=== PATIENT | male | born 1990 | race Caucasian/White ===

== ENCOUNTER 2022-12-02 01:07 | Inpatient (IN) | payer MEDICAID ==
[~2022-12-02] VITALS: Ht 177.8 cm; Wt 89.0 kg
[2022-12-02] VITALS (7 sets, daily range): BP systolic 126–151; BP diastolic 76–92; PULSE 72–95; RESP 18–20; TEMP 97.3–98.2; O2SAT 97
[2022-12-02] MEDS ORDERED: HALOPERIDOL 5 MG TABLET PO PRN (01:30)
[2022-12-02] MEDS ORDERED: ZOLPIDEM TARTRATE 10 MG TABLET PO PRN (01:30)
[2022-12-02 01:51] LABS: GLUCOMETER DEV NAME(LOC) POC.BV; POC SARS-COV2 AG, FIA NEGATIVE (NEGATIVE)
[2022-12-02] MEDS ORDERED: PETROLATUM,WHITE 28 GM JELLY TP PRN (07:00)
[2022-12-02] MEDS ORDERED: BACITRACIN 28 GM OINTMENT TP PRN (07:00)
[2022-12-02] MEDS ORDERED: MAGNESIUM HYDROXIDE SUSPENSION 30 ML UDCUP PO PRN (07:00)
[2022-12-02] MEDS ORDERED: MAG HYDROX/ALUMINUM HYD/SIMETH ES 30 ML SUSPENSION UDCUP PO PRN (07:00)
[2022-12-02] MEDS ORDERED: ACETAMINOPHEN 325 MG TABLET PO PRN (07:00)
[2022-12-02] MEDS ORDERED: CloNIDine HCL 0.1 MG TABLET PO PRN (07:00)
[2022-12-02] MEDS ORDERED: BENZOCAINE/MENTHOL LOZENGE PO PRN (07:00)
[2022-12-02] MEDS ORDERED: DOCUSATE SODIUM 100 MG CAPSULE PO PRN (07:00)
[2022-12-02] MEDS ORDERED: ONDANSETRON HCL 4 MG TABLET PO PRN (07:00)
[2022-12-02] MEDS ORDERED: LOPERAMIDE HCL 2 MG CAPSULE PO PRN (07:00)
[2022-12-02] MEDS ORDERED: OMEPRAZOLE 20 MG CAPSULE PO PRN (07:00)
[2022-12-02] MEDS ORDERED: IBUPROFEN 600 MG TABLET PO PRN (07:00)
[2022-12-02] MEDS ORDERED: ALBUTEROL SULFATE HFA 90 MCG/PUFF 8 GM INHALER IH PRN (07:00)
[2022-12-02 07:53] LABS: BASOPHILS % (AUTO) 0.7 % (0.0-2.0); EOSINOPHILS % (AUTO) 3.6 % (1.0-6.0); HEMATOCRIT 42.5 % (41-53); HEMOGLOBIN 14.1 g/dL (13.5-17.5); LYMPHOCYTES # (AUTO) 2.5 K/uL (1.0-4.8); LYMPHOCYTES % (AUTO) 29.7 % (22.0-44.0); MEAN CORPUSCULAR HEMOGLOBIN 29.9 pg (26.0-34.0); MEAN CORPUSCULAR HGB CONC 33.3 G/dL (31.0-37.0); MEAN CORPUSCULAR VOLUME 90 fL (80-100); MONOCYTES # (AUTO) 1.1 K/uL (0.1-1.0); MONOCYTES % (AUTO) 12.8 % (2.0-9.0); NEUTROPHILS # (AUTO) 4.4 K/uL (1.8-7.7); NEUTROPHILS % (AUTO) 53.2 % (40.0-70.0); PLATELET COUNT (AUTO) 327 K/uL (150-450); RED BLOOD CELL COUNT(AUTO) 4.74 MIL/uL (4.50-5.90); RED CELL DISTRIBUTION WIDTH 15.1 % (11.5-14.5); WHITE BLOOD COUNT (AUTO) 8.2 K/uL (4.5-11.0)
[2022-12-02 08:07] LABS: HEMOGLOBIN A1C 5.3 % (3.8-5.6)
[2022-12-02] MEDS: AmLODIPine BESYLATE 5 MG TABLET PO SCH (08:19)
[2022-12-02 08:21] LABS: ALANINE AMINOTRANSFERASE 55 U/L (12-78); ALBUMIN 3.2 g/dL (3.4-5.0); ALKALINE PHOSPHATASE 85 U/L (46-116); ANION GAP 7 mmol/L (8-16); ASPARTATE AMINOTRANSFERASE 44 U/L (15-37); BILIRUBIN,TOTAL 0.3 mg/dL (0.1-1.0); CARBON DIOXIDE 29 mmol/L (22-29); CHLORIDE 102 mmol/L (98-107); CHOL/HDL RATIO 2.8 (4.2-7.3); CHOLESTEROL 132 mg/dL (131-200); FREE T4 (FREE THYROXINE) 1.04 ng/dL (0.76-1.46); GLOMERULAR FILTR. RATE CALC > 60 mL/min (>60); GLUCOSE,RANDOM 91 mg/dL (70-110); HDL CHOLESTEROL 47 mg/dL (40-60); LDL CHOL (CALC.) 69 mg/dL (0-130); POTASSIUM 3.4 mmol/L (3.5-5.1); SODIUM SERUM 138 mmol/L (136-145); T4 (THYROXINE) 5.7 mcg/dL (4.7-13.3); THYROID STIMULATING HORMONE 2.42 uIU/mL (0.36-3.74); TOTAL PROTEIN, SERUM 6.5 g/dL (6.4-8.2); TRIGLYCERIDES 81 mg/dL (15-150); UREA NITROGEN, BLOOD 16 mg/dL (7-18)
[2022-12-02] MEDS: LORazepam 2 MG TABLET PO PRN (17:33)
[2022-12-03 08:04] LABS: APPEARANCE,URINE TURBID (CLEAR); BILIRUBIN,URINE NEGATIVE (NEGATIVE); COLOR,URINE YELLOW (YELLOW); GLUCOSE, URINE (UA) NEGATIVE (NEGATIVE); KETONES,URINE NEGATIVE (NEGATIVE); LEUKOCYTE ESTERASE ,URINE NEGATIVE (NEGATIVE); NITRATE,URINE NEGATIVE (NEGATIVE); OCCULT BLOOD,URINE NEGATIVE (NEGATIVE); PH,URINE 7.5 (5.0-8.0); PH,URINE DRUG SCREEN 7.5 (5.0-8.0); PROTEIN,URINE NEGATIVE (NEGATIVE); SPECIFIC GRAVITIY, URINE 1.018 (1.003-1.030); UROBILINOGEN,URINE <=1.0 mg/dL (<=1.0)
[2022-12-03 08:22] LABS: ALCOHOL, URINE DRUG SCREEN NEGATIVE (NEGATIVE); AMPHET/METH SCREEN,URINE NEGATIVE (NEGATIVE); BARBITURATE SCREEN, URINE NEGATIVE (NEGATIVE); BENZODIAZEPINES SCREEN,URINE NEGATIVE (NEGATIVE); CANNABINOID SCREEN,URINE POSITIVE (NEGATIVE); COCAINE SCREEN,URINE NEGATIVE (NEGATIVE); METHADONE SCREEN, URINE NEGATIVE (NEGATIVE); OPIATE SCREEN,URINE NEGATIVE (NEGATIVE); PHENCYCLIDINE SCREEN,URINE NEGATIVE (NEGATIVE)
[2022-12-03] MEDS: LORazepam 2 MG TABLET PO PRN ×2 (08:37→19:02)
[2022-12-03] MEDS: AmLODIPine BESYLATE 5 MG TABLET PO SCH (08:37)
[2022-12-03 09:28] VITALS: BP 138/84; PULSE 84; RESP 17; TEMP 97.7; O2SAT 100
[2022-12-03 21:36] VITALS: BP 151/81; PULSE 94; RESP 17; TEMP 97.8; O2SAT 98
[2022-12-04 08:30] VITALS: BP 131/74; PULSE 74; RESP 17; TEMP 97; O2SAT 95
[2022-12-04] MEDS: AmLODIPine BESYLATE 5 MG TABLET PO SCH (08:56)
[2022-12-04] MEDS ORDERED: BuPROPion HCL 75 MG TABLET PO SCH (09:00)
[2022-12-04] MEDS: LORazepam 2 MG TABLET PO PRN (18:21)
[2022-12-04 20:15] VITALS: BP 138/82; PULSE 79; RESP 18; TEMP 98; O2SAT 98
== END 2022-12-05 07:15 | disposition home or self-care (01) | DRG 754 ==
LOC: B3A 01:25
PROVIDERS: ADMIT Psychiatry & Neurology Psychiatry; ATTEND Psychiatry & Neurology Psychiatry
DX: F32.9 Major depressive disorder, single episode, unspecified (principal); R45.851 Suicidal ideations; F41.9 Anxiety disorder, unspecified; G47.00 Insomnia, unspecified; F19.10 Other psychoactive substance abuse, uncomplicated; K59.00 Constipation, unspecified; F10.90 Alcohol use, unspecified, uncomplicated; Z20.822 Contact with and (suspected) exposure to COVID-19
CPT/HCPCS: 80053; 80061; 80307; 81003; 83036; 84436; 84439; 84443; 85025; 86592

== ENCOUNTER 2023-08-14 01:31 | Inpatient (IN) | payer MEDICAID ==
[2023-08-14] VITALS (10 sets, daily range): BP systolic 101–151; BP diastolic 54–93; PULSE 76–121; RESP 17–19; TEMP 97–98; O2SAT 95–98
[~2023-08-14] VITALS: Ht 177.8 cm; Wt 88.7 kg
[2023-08-14] MEDS ORDERED: ZOLPIDEM TARTRATE 10 MG TABLET PO PRN (02:00)
[2023-08-14] MEDS ORDERED: HALOPERIDOL 5 MG TABLET PO PRN (02:00)
[2023-08-14] MEDS ORDERED: LORazepam 2 MG TABLET PO PRN (02:00)
[2023-08-14] MEDS ORDERED: OLANZapine 5 MG RAPDIS TABLET PO PRN (02:15)
[2023-08-14] MEDS: ONDANSETRON HCL 4 MG TABLET PO ONE (02:43)
[2023-08-14 03:26] LABS: GLUCOMETER DEV NAME(LOC) POC.BV; POC SARS-COV2 AG, FIA NEGATIVE (NEGATIVE)
[2023-08-14] MEDS ORDERED: MAGNESIUM HYDROXIDE SUSPENSION 30 ML UDCUP PO PRN (10:00)
[2023-08-14] MEDS ORDERED: MAG HYDROX/ALUMINUM HYD/SIMETH ES 30 ML SUSPENSION UDCUP PO PRN (10:00)
[2023-08-14] MEDS ORDERED: HydrOXYzine PAMOATE 50 MG CAPSULE PO PRN (10:00)
[2023-08-14] MEDS ORDERED: GuaiFENesin/D-METHORPHAN [SUGAR-FREE] 200-20MG/10 ML SYRUP UDCUP PO PRN (10:00)
[2023-08-14] MEDS ORDERED: LOPERAMIDE HCL 2 MG CAPSULE PO PRN ×2 (10:00)
[2023-08-14] MEDS ORDERED: PROMETHAZINE HCL 25 MG TABLET PO PRN (10:00)
[2023-08-14] MEDS ORDERED: TUBERCULIN, PURIFIED PROTEIN DERIVATIVE 5 TU/0.1 ML SYRINGE ID ONE (10:00)
[2023-08-14] MEDS: CYANOCOBALAMIN 1,000 MCG/ML VIAL IM ONE (10:39)
[2023-08-14] MEDS: LORazepam 2 MG TABLET PO PRN (10:41)
[2023-08-14] MEDS: GABAPENTIN 100 MG CAPSULE PO SCH (14:11)
[2023-08-14] MEDS: DIVALPROEX SODIUM 500 MG ER TABLET PO SCH (21:23)
[2023-08-14] MEDS: HydrOXYzine PAMOATE 50 MG CAPSULE PO SCH (21:23)
[2023-08-14] MEDS: THIAMINE 100 MG TABLET PO SCH (21:23)
[2023-08-14] MEDS: TraZODone HCL 150 MG TABLET PO SCH (21:24)
[2023-08-14] MEDS: MELATONIN 5 MG TABLET PO SCH (21:24)
[2023-08-14] MEDS: OLANZapine 5 MG RAPDIS TABLET PO SCH (21:25)
[2023-08-15 08:19] LABS: HEMOGLOBIN A1C 5.2 % (3.8-5.6)
[2023-08-15 08:29] LABS: BASOPHILS % (AUTO) 0.6 % (0.0-2.0); EOSINOPHILS % (AUTO) 3.7 % (1.0-6.0); HEMATOCRIT 46.1 % (41-53); HEMOGLOBIN 15.4 g/dL (13.5-17.5); LYMPHOCYTES # (AUTO) 2.6 K/uL (1.0-4.8); LYMPHOCYTES % (AUTO) 38.1 % (22.0-44.0); MEAN CORPUSCULAR HEMOGLOBIN 29.5 pg (26.0-34.0); MEAN CORPUSCULAR HGB CONC 33.5 G/dL (31.0-37.0); MEAN CORPUSCULAR VOLUME 88 fL (80-100); MONOCYTES # (AUTO) 0.6 K/uL (0.1-1.0); MONOCYTES % (AUTO) 8.7 % (2.0-9.0); NEUTROPHILS # (AUTO) 3.4 K/uL (1.8-7.7); NEUTROPHILS % (AUTO) 48.9 % (40.0-70.0); PLATELET COUNT (AUTO) 310 K/uL (150-450); RED BLOOD CELL COUNT(AUTO) 5.24 MIL/uL (4.50-5.90); RED CELL DISTRIBUTION WIDTH 13.6 % (11.5-14.5); WHITE BLOOD COUNT (AUTO) 6.9 K/uL (4.5-11.0)
[2023-08-15 08:32] LABS: APPEARANCE,URINE TURBID (CLEAR); BILIRUBIN,URINE NEGATIVE (NEGATIVE); COLOR,URINE YELLOW (YELLOW); GLUCOSE, URINE (UA) NEGATIVE (NEGATIVE); KETONES,URINE TRACE mg/dL (NEGATIVE); LEUKOCYTE ESTERASE ,URINE NEGATIVE (NEGATIVE); NITRATE,URINE NEGATIVE (NEGATIVE); OCCULT BLOOD,URINE NEGATIVE (NEGATIVE); PROTEIN,URINE 30-70 mg/dL (NEGATIVE); SPECIFIC GRAVITIY, URINE 1.027 (1.003-1.030)
[2023-08-15 08:39] LABS: ALCOHOL, URINE DRUG SCREEN POSITIVE (NEGATIVE); AMPHET/METH SCREEN,URINE NEGATIVE (NEGATIVE); BARBITURATE SCREEN, URINE NEGATIVE (NEGATIVE); BENZODIAZEPINES SCREEN,URINE POSITIVE (NEGATIVE); CANNABINOID SCREEN,URINE POSITIVE (NEGATIVE); COCAINE SCREEN,URINE NEGATIVE (NEGATIVE); METHADONE SCREEN, URINE NEGATIVE (NEGATIVE); OPIATE SCREEN,URINE NEGATIVE (NEGATIVE); PHENCYCLIDINE SCREEN,URINE NEGATIVE (NEGATIVE)
[2023-08-15 08:43] VITALS: BP 121/75; PULSE 63; RESP 18; TEMP 98.2; O2SAT 100
[2023-08-15 08:45] LABS: ALANINE AMINOTRANSFERASE 55 U/L (12-78); ALKALINE PHOSPHATASE 113 U/L (46-116); ANION GAP 5 mmol/L (8-16); ASPARTATE AMINOTRANSFERASE 37 U/L (15-37); BILIRUBIN,TOTAL 0.9 mg/dL (0.1-1.0); CALCIUM, TOTAL 8.6 mg/dL (8.8-10.5); CARBON DIOXIDE 31 mmol/L (22-29); CHLORIDE 103 mmol/L (98-107); CHOL/HDL RATIO 3.1 (4.2-7.3); CHOLESTEROL 150 mg/dL (131-200); CREATININE 0.98 mg/dL (0.60-1.30); FREE T4 (FREE THYROXINE) 0.96 ng/dL (0.76-1.46); GLOMERULAR FILTR. RATE CALC > 60 mL/min (>60); GLUCOSE,RANDOM 84 mg/dL (70-110); HDL CHOLESTEROL 48 mg/dL (40-60); LDL CHOL (CALC.) 64 mg/dL (0-130); POTASSIUM 3.2 mmol/L (3.5-5.1); SODIUM SERUM 139 mmol/L (136-145); T4 (THYROXINE) 5.7 mcg/dL (4.7-13.3); THYROID STIMULATING HORMONE 3.48 uIU/mL (0.36-3.74); TOTAL PROTEIN, SERUM 6.4 g/dL (6.4-8.2); TRIGLYCERIDES 191 mg/dL (15-150); UREA NITROGEN, BLOOD 14 mg/dL (7-18)
[2023-08-15] MEDS ORDERED: FLUoxetine HCL 20 MG CAPSULE PO SCH (09:00)
[2023-08-15] MEDS: MULTIVITAMINS WITH MINERALS, THERAPEUTIC TABLET PO SCH (09:11)
[2023-08-15] MEDS: LORazepam 2 MG TABLET PO SCH (09:11)
[2023-08-15] MEDS: FOLIC ACID 1 MG TABLET PO SCH (09:11)
[2023-08-15] MEDS: NALTREXONE HCL 50 MG TABLET PO SCH (09:12)
[2023-08-15] MEDS: OMEGA-3/DHA/EPA/FISH OIL 1,000 MG CAPSULE PO SCH (09:12)
[2023-08-15] MEDS ORDERED: LORazepam 2 MG TABLET PO ONE (15:00)
[2023-08-15] MEDS: ACETAMINOPHEN 325 MG TABLET PO PRN (16:41)
[2023-08-15 17:27] VITALS: BP 125/80; PULSE 78; RESP 18; TEMP 97.6; O2SAT 98
[2023-08-15 21:11] VITALS: BP 148/74; PULSE 74; RESP 18; TEMP 97.9; O2SAT 96
[2023-08-16 09:15] VITALS: BP 117/90; PULSE 72; RESP 18; TEMP 97.9; O2SAT 98
[2023-08-16] MEDS: POTASSIUM CHLORIDE 20 MEQ ER TABLET PO ONE (12:57)
[2023-08-16 13:00] VITALS: BP 118/65
[2023-08-16 15:02] VITALS: BP 124/78; PULSE 78; RESP 18; TEMP 98.2; O2SAT 98
[2023-08-16] MEDS: OLANZapine 10 MG TABLET PO SCH (21:04)
[2023-08-16 21:15] VITALS: BP 137/88; PULSE 97; RESP 16; TEMP 98.7; O2SAT 94
[2023-08-17] MEDS: LORazepam 2 MG TABLET PO PRN (04:19)
[2023-08-17] MEDS ORDERED: LORazepam 1 MG TABLET PO PRN (07:00)
[2023-08-17] MEDS ORDERED: MELA5TAB40 PO (07:52)
[2023-08-17] MEDS ORDERED: HYDR50CA7 PO (07:52)
[2023-08-17] MEDS ORDERED: NALT50TA33 PO (07:52)
[2023-08-17] MEDS ORDERED: OLAN10TA74 PO (07:52)
[2023-08-17] MEDS ORDERED: DIVA-153 PO (07:52)
[2023-08-17] MEDS ORDERED: TRAZ-283 PO (07:52)
[2023-08-17 08:30] VITALS: BP 125/78; PULSE 89; RESP 18; TEMP 97; O2SAT 98
[2023-08-17] MEDS ORDERED: LORazepam 1 MG TABLET PO SCH (09:00)
[2023-08-18] MEDS ORDERED: LORazepam 1 MG TABLET PO PRN (07:00)
== END 2023-08-17 15:42 | disposition home or self-care (01) | DRG 751 ==
LOC: B2S 02:03
PROVIDERS: ADMIT Psychiatry & Neurology Psychiatry; ATTEND Psychiatry & Neurology Psychiatry
PROC: GZHZZZZ Group Psychotherapy (ICD-10-PCS; principal; 2023-08-14)
PROC: GZ51ZZZ Individual Psychotherapy, Behavioral (ICD-10-PCS; 2023-08-14)
PROC: GZ58ZZZ Individual Psychotherapy, Cognitive-Behavioral (ICD-10-PCS; 2023-08-14)
PROC: GZ56ZZZ Individual Psychotherapy, Supportive (ICD-10-PCS; 2023-08-15)
DX: F33.2 Major depressive disorder, recurrent severe without psychotic features (principal); F29 Unspecified psychosis not due to a substance or known physiological condition; R45.851 Suicidal ideations; G47.00 Insomnia, unspecified; F15.10 Other stimulant abuse, uncomplicated; F41.9 Anxiety disorder, unspecified; I10 Essential (primary) hypertension; F17.200 Nicotine dependence, unspecified, uncomplicated; J44.9 Chronic obstructive pulmonary disease, unspecified; Z59.00 Homelessness unspecified; Z88.8 Allergy status to other drugs, medicaments and biological substances
CPT/HCPCS: 80053; 80061; 80307; 81003; 83036; 84436; 84439; 84443; 85025; 86592; 87081; J3420; Q0162; Q9967

== ENCOUNTER 2024-11-10 11:53 | Inpatient (IN) | payer MEDICAID ==
[2024-11-10] VITALS (7 sets, daily range): BP systolic 132–149; BP diastolic 80–99; PULSE 82–99; RESP 14–18; TEMP 98.1–99.1; O2SAT 95–100
[~2024-11-10] VITALS: Ht 177.8 cm; Wt 94.0 kg
[~2024-11-10 11:53] MED LIST: DIVA-153 PO; HYDR50CA7 PO; MELA5TAB40 PO; NALT50TA33 PO; OLAN10TA74 PO; TRAZ-283 PO
[2024-11-10] MEDS ORDERED: QUET50TA15 PO (13:21)
[2024-11-10] MEDS ORDERED: AMLO-258 PO (13:21)
[2024-11-10] MEDS ORDERED: SERT-158 PO (13:21)
[2024-11-10] MEDS ORDERED: GuaiFENesin/D-METHORPHAN [SUGAR-FREE] 200-20MG/10 ML SYRUP UDCUP PO PRN (14:30)
[2024-11-10] MEDS ORDERED: PROMETHAZINE HCL 25 MG TABLET PO PRN (14:30)
[2024-11-10] MEDS ORDERED: LOPERAMIDE HCL 2 MG CAPSULE PO PRN (14:30)
[2024-11-10] MEDS ORDERED: ACETAMINOPHEN 325 MG TABLET PO PRN (14:30)
[2024-11-10] MEDS ORDERED: MAG HYDROX/ALUMINUM HYD/SIMETH ES 30 ML SUSPENSION UDCUP PO PRN (14:30)
[2024-11-10] MEDS: OMEGA-3/DHA/EPA/FISH OIL 1,000 MG CAPSULE PO SCH (16:21)
[2024-11-10] MEDS: GABAPENTIN 100 MG CAPSULE PO SCH (16:21)
[2024-11-10] MEDS: THIAMINE 100 MG TABLET PO SCH (16:21)
[2024-11-10] MEDS: CYANOCOBALAMIN 1,000 MCG/ML VIAL IM ONE (16:50)
[2024-11-10] MEDS ORDERED: DIVALPROEX SODIUM 500 MG ER TABLET PO SCH (17:00)
[2024-11-10] MEDS: TraZODone HCL 150 MG TABLET PO SCH (20:00)
[2024-11-10] MEDS: MELATONIN 5 MG TABLET PO SCH (20:01)
[2024-11-10] MEDS: ZOLPIDEM TARTRATE 10 MG TABLET PO PRN (20:15)
[2024-11-10] MEDS ORDERED: MIRTAZAPINE 15 MG TABLET PO SCH (21:00)
[2024-11-11] VITALS (8 sets, daily range): BP systolic 107–126; BP diastolic 67–78; PULSE 67–99; RESP 17–18; TEMP 96.6–98.5; O2SAT 96–99
[2024-11-11] MEDS: NALTREXONE HCL 50 MG TABLET PO SCH (08:08)
[2024-11-11] MEDS: MULTIVITAMINS WITH MINERALS, THERAPEUTIC TABLET PO SCH (08:08)
[2024-11-11] MEDS: SERTRALINE HCL 100 MG TABLET PO SCH (08:08)
[2024-11-11] MEDS: FOLIC ACID 1 MG TABLET PO SCH (08:08)
[2024-11-11 08:31] LABS: PLATELET COUNT (AUTO) 367 K/uL (150-450); RED BLOOD CELL COUNT(AUTO) 5.82 MIL/uL (4.50-5.90); RED CELL DISTRIBUTION WIDTH 14.0 % (11.5-14.5); WHITE BLOOD COUNT (AUTO) 9.8 K/uL (4.5-11.0)
[2024-11-11 09:02] LABS: APPEARANCE,URINE CLEAR (CLEAR); GLUCOSE, URINE (UA) NEGATIVE (NEGATIVE); LEUKOCYTE ESTERASE ,URINE TRACE (NEGATIVE); NITRATE,URINE NEGATIVE (NEGATIVE); OCCULT BLOOD,URINE NEGATIVE (NEGATIVE); PH,URINE DRUG SCREEN 5.5 (5.0-8.0); SPECIFIC GRAVITIY, URINE 1.023 (1.003-1.030)
[2024-11-11 09:20] LABS: ALCOHOL, URINE DRUG SCREEN NEGATIVE (NEGATIVE); AMPHET/METH SCREEN,URINE NEGATIVE (NEGATIVE); BARBITURATE SCREEN, URINE NEGATIVE (NEGATIVE); CANNABINOID SCREEN,URINE POSITIVE (NEGATIVE); COCAINE SCREEN,URINE NEGATIVE (NEGATIVE); METHADONE SCREEN, URINE NEGATIVE (NEGATIVE)
[2024-11-11 10:04] LABS: ASPARTATE AMINOTRANSFERASE 34 U/L (15-37); CALCIUM, TOTAL 9.2 mg/dL (8.8-10.5); CHOL/HDL RATIO 4.1 (4.2-7.3); CREATININE 0.79 mg/dL (0.60-1.30); GLOMERULAR FILTR. RATE CALC > 60 mL/min (>60); GLUCOSE,RANDOM 81 mg/dL (70-110); LDL CHOL (CALC.) 111 mg/dL (0-130); SODIUM SERUM 139 mmol/L (136-145); TOTAL PROTEIN, SERUM 7.8 g/dL (6.4-8.2); UREA NITROGEN, BLOOD 15 mg/dL (7-18)
[2024-11-11] MEDS: POTASSIUM CHLORIDE 20 MEQ ER TABLET PO ONE ×2 (12:28→16:04)
[2024-11-11] MEDS: ACAMPROSATE CALCIUM 333 MG DR TABLET PO SCH (16:04)
[2024-11-11] MEDS: TOPIRAMATE 25 MG TABLET PO SCH (20:25)
[2024-11-12] MEDS: LEVOTHYROXINE SODIUM 25 MCG TABLET PO SCH (06:03)
[2024-11-12 08:00] VITALS: BP 108/63; PULSE 100; RESP 17; TEMP 98.6; O2SAT 100
[2024-11-12 08:24] VITALS: BP 108/63; PULSE 67; RESP 17; TEMP 98.6; O2SAT 100
[2024-11-12] MEDS: SERTRALINE HCL 50 MG TABLET PO SCH (08:54)
[2024-11-12] MEDS: ATORVASTATIN CALCIUM 20 MG TABLET PO SCH (08:58)
[2024-11-12] MEDS: GABAPENTIN 300 MG CAPSULE PO SCH (08:59)
[2024-11-12 09:00] LABS: CALCIUM, TOTAL 8.5 mg/dL (8.8-10.5); CREATININE 0.71 mg/dL (0.60-1.30); GLOMERULAR FILTR. RATE CALC > 60 mL/min (>60); GLUCOSE,RANDOM 81 mg/dL (70-110); SODIUM SERUM 139 mmol/L (136-145); UREA NITROGEN, BLOOD 15 mg/dL (7-18)
[2024-11-12] MEDS: MAGNESIUM HYDROXIDE SUSPENSION 30 ML UDCUP PO PRN (09:31)
[2024-11-12] MEDS: GABAPENTIN 400 MG CAPSULE PO SCH (16:22)
[2024-11-12] MEDS: TUBERCULIN, PURIFIED PROTEIN DERIVATIVE 5 TU/0.1 ML SYRINGE ID ONE (19:10)
[2024-11-12 20:11] VITALS: BP 121/89; PULSE 87; RESP 18; TEMP 98.1; O2SAT 97
[2024-11-13 08:06] VITALS: BP 117/70; PULSE 82; RESP 17; TEMP 97.5; O2SAT 99
[2024-11-13 08:56] VITALS: BP 117/70; PULSE 82; RESP 17; TEMP 97.5; O2SAT 99
[2024-11-13] MEDS ORDERED: LOPERAMIDE HCL 2 MG CAPSULE PO PRN (14:30)
[2024-11-13] MEDS ORDERED: GABAPENTIN 100 MG CAPSULE ONE (16:55)
[2024-11-13] MEDS: GABAPENTIN 300 MG CAPSULE PO SCH (17:00)
[2024-11-13 20:03] VITALS: BP 126/87; PULSE 115; RESP 18; TEMP 98.7; O2SAT 98
[2024-11-13] MEDS: TOPIRAMATE 25 MG TABLET PO SCH (20:23)
[2024-11-13 20:36] VITALS: BP 126/87; PULSE 76; RESP 18; TEMP 98.7; O2SAT 98
[2024-11-13] MEDS ORDERED: TOPIRAMATE 25 MG TABLET PO SCH (21:00)
[2024-11-14 08:06] VITALS: BP 121/69; PULSE 91; RESP 16; TEMP 97.2; O2SAT 99
[2024-11-14] MEDS: SERTRALINE HCL 100 MG TABLET PO SCH (08:23)
[2024-11-14 08:32] VITALS: BP 121/69; PULSE 91; RESP 16; TEMP 97.2; O2SAT 99
[2024-11-14] MEDS: GABAPENTIN 400 MG CAPSULE PO SCH (16:30)
[2024-11-14 20:00] VITALS: BP 117/75; PULSE 70; RESP 16; TEMP 98.1; O2SAT 100
[2024-11-14 20:08] VITALS: BP 142/87; PULSE 85; RESP 16; TEMP 98.2; O2SAT 98
[2024-11-15 08:01] VITALS: BP 114/82; RESP 15; TEMP 98; O2SAT 99
[2024-11-15 08:34] VITALS: BP 114/82; PULSE 90; RESP 15; TEMP 98; O2SAT 99
[2024-11-15 08:55] VITALS: PULSE 90
[2024-11-15] MEDS: GABAPENTIN 300 MG CAPSULE PO PRN (18:00)
[2024-11-15 20:19] VITALS: BP 124/62; PULSE 75; RESP 18; TEMP 98.7; O2SAT 99
[2024-11-16 10:02] VITALS: BP 127/65; PULSE 94; RESP 16; TEMP 98.1; O2SAT 98
[2024-11-16] MEDS ORDERED: SENNOSIDES 8.6 MG TABLET PO PRN (10:45)
[2024-11-16] MEDS: DOCUSATE SODIUM 250 MG CAPSULE PO SCH (12:18)
[2024-11-16 21:28] VITALS: BP 118/70; PULSE 82; RESP 17; TEMP 97.8; O2SAT 100
[2024-11-17 13:45] VITALS: BP 123/87; PULSE 75; RESP 18; TEMP 97.2; O2SAT 99
[2024-11-17 20:22] VITALS: BP 134/88; PULSE 79; RESP 17; TEMP 98.2; O2SAT 98
[2024-11-18] MEDS: TOPIRAMATE 25 MG TABLET PO SCH (06:21)
[2024-11-18 08:30] VITALS: BP 125/79; PULSE 90; RESP 16; TEMP 98.3; O2SAT 99
[2024-11-18 20:14] VITALS: BP 125/79; PULSE 79; RESP 18; TEMP 98.4; O2SAT 99
[2024-11-18] MEDS: ESZOPICLONE 3 MG TABLET PO SCH (21:00)
[2024-11-19 08:10] VITALS: BP 135/83; PULSE 100; RESP 17; TEMP 97.5; O2SAT 97
[2024-11-19 20:03] VITALS: BP 131/92; PULSE 80; RESP 18; TEMP 98.1; O2SAT 99
[2024-11-20] MEDS: TOPIRAMATE 100 MG TABLET PO SCH (06:13)
[2024-11-20 08:01] VITALS: BP 120/75; PULSE 81; RESP 16; TEMP 98.3; O2SAT 99
[2024-11-20 20:12] VITALS: BP 127/81; PULSE 87; RESP 18; TEMP 98.4; O2SAT 100
[2024-11-21 08:02] VITALS: BP 121/84; PULSE 89; RESP 18; TEMP 97.7; O2SAT 99
[2024-11-21] MEDS: NALTREXONE HCL 50 MG TABLET PO SCH (08:05)
[2024-11-21 20:10] VITALS: BP 118/83; PULSE 74; RESP 18; TEMP 98.3; O2SAT 98
[2024-11-22 08:19] VITALS: BP 108/77; PULSE 91; RESP 16; TEMP 97.8; O2SAT 98
[2024-11-22 20:14] VITALS: BP 134/74; PULSE 83; RESP 17; TEMP 99.9; O2SAT 98
[2024-11-23 08:15] VITALS: BP 103/81; PULSE 87; RESP 14; TEMP 97; O2SAT 99
[2024-11-24 02:13] VITALS: BP 133/89; PULSE 82; RESP 17; TEMP 98.7; O2SAT 98
[2024-11-24 08:05] VITALS: BP 102/64; PULSE 66; RESP 17; TEMP 97.7; O2SAT 97
[2024-11-24 20:01] VITALS: BP 135/70; PULSE 86; RESP 18; TEMP 97.7; O2SAT 98
[2024-11-25 08:01] VITALS: BP 120/79; PULSE 88; RESP 16; TEMP 97.7; O2SAT 98
[2024-11-25] MEDS ORDERED: TRAZ-252 PO (15:39)
[2024-11-25] MEDS ORDERED: ESZO3TAB53 PO (15:39)
[2024-11-25] MEDS ORDERED: QUET200T30 PO (15:39)
[2024-11-25] MEDS ORDERED: OMEG100033 PO (15:39)
[2024-11-25] MEDS ORDERED: TOPI100 PO (15:39)
[2024-11-25] MEDS ORDERED: GABA-1201 PO (15:39)
[2024-11-25] MEDS ORDERED: SERT-440 PO (15:39)
[2024-11-25] MEDS ORDERED: QUET100T34 PO (15:39)
== END 2024-11-25 17:40 | disposition home or self-care (01) | DRG 753 ==
LOC: B3A 12:02
PROVIDERS: ADMIT Psychiatry & Neurology Psychiatry; ATTEND Psychiatry & Neurology Psychiatry
PROC: GZHZZZZ Group Psychotherapy (ICD-10-PCS; principal; 2024-11-10)
PROC: GZ58ZZZ Individual Psychotherapy, Cognitive-Behavioral (ICD-10-PCS; 2024-11-10)
PROC: GZ56ZZZ Individual Psychotherapy, Supportive (ICD-10-PCS; 2024-11-11)
DX: F31.60 Bipolar disorder, current episode mixed, unspecified (principal); Z59.00 Homelessness unspecified; R45.851 Suicidal ideations; F10.20 Alcohol dependence, uncomplicated; F41.9 Anxiety disorder, unspecified; G47.09 Other insomnia; I10 Essential (primary) hypertension; F17.200 Nicotine dependence, unspecified, uncomplicated; J44.9 Chronic obstructive pulmonary disease, unspecified; K59.00 Constipation, unspecified; Z55.9 Problems related to education and literacy, unspecified; Z56.0 Unemployment, unspecified; Z59.9 Problem related to housing and economic circumstances, unspecified; Z63.9 Problem related to primary support group, unspecified; Z65.3 Problems related to other legal circumstances; Z88.8 Allergy status to other drugs, medicaments and biological substances; Z79.899 Other long term (current) drug therapy
CPT/HCPCS: 80048; 80053; 80061; 80307; 81001; 83036; 84439; 84443; 85025; 86592; J3420